=== PATIENT | male | born 1995 | race Caucasian/White ===

== ENCOUNTER 2023-06-10 11:21 | Day surgery (SDC) | payer BC, SELFPAY ==
[2023-06-05 15:27] VITALS: BMI 23.6
[2023-06-10 12:24] VITALS: BMI 23.8
[2023-06-10 12:29] VITALS: BP 131/73; PULSE 81; RESP 16; TEMP 36.6; O2SAT 99
--- NOTE | 2023-06-10 13:09 | HO.ANESPROP2 ---
[facility] Past Medical History Medical History (Updated 06/05/23 @ 15:28 by Ebonie Moore RN) Seasonal allergies Melena Psoriasis Family History Family history of problems with anesthesia: No Surgical History Surgical History (Updated 06/05/23 @ 15:25 by Ebonie Moore RN) Hx of bilateral inguinal hernia repair Hx of appendectomy H/O colonoscopy History of Problems with Anesthesia: No Social History Social History (Updated 06/05/23 @ 15:26 by Ebonie Moore RN) Household Members: Spouse Patient Tobacco Use Status: Never used Tobacco Use of substances other than those prescribed or required for medical reasons: No Are you DNR?: No Advance Directives: No Advance Directives Information Provided: Yes Meds Allergies Allergy/AdvReac Type Severity Reaction Status Date / Time No Known Allergies Allergy Verified 06/05/23 13:27 Active Medications: Current Medications Lactated Ringer's (Lr) 1,000 mls @ 80 mls/hr IVCONT .[id number] [facility] Home Medications Medication Instructions Recorded Confirmed Last Taken Type cetirizine 10 mg tablet (Zyrtec) 10 mg PO DAILY 06/05/23 06/05/23 Unknown History Exam Height,Weight and Vital Signs: Height 5 ft 8 in Weight 70.931 kg Last Vital Signs Temp 97.8 F 06/10/23 12:29 Pulse 81 06/10/23 12:29 Resp 16 06/10/23 12:29 BP 131/73 06/10/23 12:29 Pulse Ox 99 06/10/23 12:29 O2 Del Method Room Air 06/10/23 12:29 Airway Mallampati Class: II TM Dist: >3cm Neck ROM: Full Assessment and Plan Assessment Anesthesia Assessment: Anesthesia Plan Discussed and Chart Reviewed Final Anesthetic Review Family History of Problems with Anesthesia: No History of Problems with Anesthesia: No NPO: Yes ASA Class: II Final Preanesthetic Review: No Changes in Pt Med Stat, Meds/Allgs Chart Reviewed, Consent Obtained/Reviewed and Anes Risks/Benef Reviewed Patient Risk: Low Procedure Risk: Low Anesthetic Plan Anesthetic Plan: TIVA Disposition: Standard PACU
--- NOTE | 2023-06-10 13:43 | MHC.SHP ---
Pre-Procedural Eval Section A - 24 Hr Update-Section A only Date of Service: 06/10/23 The patient is an INPATIENT: No Changes since office visit: No Cold of Flu in the past 2 weeks, No New Medical Problems, No Changes in Medication and No Patient answered all questions The patient has been examined within 24 hours of the surgical procedure. The History & Physical has been completed within 30 days and I have reviewed it.: Yes Section B - Complete if H&P > 30 days Chief Complaint: Generalized abdominal pain Allergies: Allergies Allergy/AdvReac Type Severity Reaction Status Date / Time No Known Allergies Allergy Verified 06/05/23 13:27 Plan I have reviewed the history and physical and performed a pertinent physical examination on my patient. No changes have occurred unless specified. Time Spent With Patient Time: Total time managing care of this patient today ____ minutes.
[2023-06-10 14:36] VITALS: BP 107/55; PULSE 77; RESP 16; TEMP 36.1; O2SAT 98
[2023-06-10 14:51] VITALS: BP 108/56; PULSE 69; RESP 18; O2SAT 98
--- NOTE | 2023-06-10 15:00 | OP_ITS ---
DATE OF SERVICE: 06/10/2023 SURGEON: Harjit Samuel MD INDICATIONS: Generalized abdominal pain and change in bowel habits. PREOPERATIVE DIAGNOSIS: POSTOPERATIVE DIAGNOSIS: PROCEDURE PERFORMED: Upper endoscopy with biopsy. ESTIMATED BLOOD LOSS: COMPLICATIONS: ANESTHESIA: Monitored anesthesia care. ASSISTANTS: SPECIMENS: DESCRIPTION OF PROCEDURE: A history and physical were performed. The risks and benefits of the procedure were explained to the patient and informed consent was obtained. The patient was placed in the left lateral decubitus position. The Olympus video gastroscope was introduced into the esophagus, stomach, and duodenum. Examination was performed. The scope was removed. He tolerated the procedure well and was taken to recovery area in stable condition. FINDINGS: Esophagus: The esophagus was normal. There was no esophagitis. Biopsies were obtained from the EG junction. Stomach: Stomach showed no evidence of masses, ulcers, or polyps. Antral biopsies were obtained to evaluate for H pylori. Duodenum: The bulb and 2nd portion were normal. Second portion biopsies were obtained to evaluate for celiac disease. IMPRESSION: Normal upper endoscopy. RECOMMENDATION: Follow up the biopsy results. MD LUCY Roy/TIMOTHY / [id number]
[2023-06-10 15:06] VITALS: BP 112/58; PULSE 80; RESP 18; TEMP 37.3; O2SAT 100
== END 2023-06-10 15:48 | disposition home or self-care (01) ==
PROVIDERS: Visit Provider Internal Medicine Gastroenterology
PROC: 0DJ08ZZ Inspection of Upper Intestinal Tract, Via Natural or Artificial Opening Endoscopic (ICD-10-PCS; CPT 43235; principal; 2023-06-10 12:30)
DX: R19.4 Change in bowel habit (principal); K64.8 Other hemorrhoids; K29.50 Unspecified chronic gastritis without bleeding; K21.9 Gastro-esophageal reflux disease without esophagitis; L40.9 Psoriasis, unspecified; J30.2 Other seasonal allergic rhinitis; Z79.899 Other long term (current) drug therapy
CPT/HCPCS: 43239; 88305; 88313; 88342; J2704